=== PATIENT | female | born 1930 | race Caucasian/White ===

== ENCOUNTER 2016-06-05 12:14 | Inpatient (IN) ==
--- NOTE | 2016-06-05 13:19 | PROVIDER DOCUMENTATION ---
HPI-Musculoskeletal Pain/Inj - GENERAL Chief Complaint: Hip Injury Stated Complaint: FALL Time Seen by Provider: 06/05/16 12:36 Source: patient, family - HX OF PRESENT ILLNESS-MUSKULOSKELTAL Nature of Presenting Problem: 86 yo female presents to ER with c/o left hip pain and left knee pain after falling last night. She could not tell me what happened, what time it happened but states that she slept on the floor. She was alone. Quality of Pain: reports: aching, throbbing Severity in ED: severe Onset/Duration: last night Timing: still present Modifying Factors: improves with: movement (worsens), palpation (worsens) Any recent injury?: Yes Locality of Occurance: Home Similar Symptoms Previously?: No Recently seen or treated by another doctor?: No - FALL INJURY Location of Pain/Injury: reports: pelvis (left hip), lower extremity (left knee) Pain Radiation: reports: no radiation Reason for Fall: reports: unknown Symptoms prior to fall:: reports: none Loss of Consciousness: no loss of consciousness Injury Associated Symptoms: reports: joint pain, muscle aches Review of Systems - Adult - REVIEW OF SYSTEMS - ADULT Constitutional: reports: no symptoms reported Eyes: reports: no symptoms reported Ears, Nose, Mouth & Throat: reports: no symptoms reported Cardiovascular: reports: no symptoms reported Respiratory: reports: no symptoms reported Gastrointestinal: reports: no symptoms reported Genitourinary: reports: no symptoms reported Musculoskeletal: reports: see HPI, bone pain, joint pain, muscle aches Integumentary: reports: no symptoms reported Neurological: reports: no symptoms reported Psychiatric: reports: no symptoms reported Endocrine: reports: no symptoms reported Hematologic/Lymphatic: reports: no symptoms reported Allergic/Immunologic: reports: no symptoms reported All Other Systems: Reviewed and Negative Past History - Adult - PAST MEDICAL HISTORY-ADULT Review of Records: reports: Old Records Reviewed, Nursing Assessment Review, Medications Reviewed, Social history reviewed & non-contributory. Major Childhood Illnesses: reports: denies history Cardiovascular: reports: denies history Respiratory: reports: denies history Gastrointestinal: reports: denies history Obstetrical/Gynecological: reports: denies history Genitourinary: reports: denies history Musculoskeletal: reports: denies history Neurological: reports: denies history Endocrine/Immune: reports: Diabetes Other Conditions: reports: denies history - IMMUNIZATION STATUS Childhood Immunizations: See Nurse Assessment Flu Vaccine: See Nurse Assessment - SOCIAL HISTORY Smoking: denies, non-smoker Substance Use: none/never, denies Alcohol Use Frequency: never Living Situation: alone Physical Exam-Injury Related - Physical Exam-Injury Related Initial Vital Signs Reviewed: Yes General Appearance: appears well, alert, no apparent distress Eyes: PERRL/EOMI, pink conjunctivae Head, Ears, Nose, Mouth & Throat: moist mucous membranes Respiratory: no respiratory distress Cardiovascular: normal peripheral pulses Peripheral Pulses: dorsalis-pedis (R): 2+, dorsalis-pedis (L): 2+ Extremity: deformity (external rotation; left leg shorter than right), tenderness (left lateral hip) Integumentary: normal color, warm/dry Neurologic: grossly normal Psych/Mental Status: normal mood/affect - Glascow Coma Score Best Eye Response (Campbell): (4) open spontaneously Best Verbal Response (Stacia): (5) oriented Best Motor Response (Campbell): (6) obeys commands Stacia Total: 15 Progress - PLAN OF CARE/RESULTS Progress/Plan/Lab Results: Vital Signs - 8 hr 06/05/16 12:19 06/05/16 13:33 Temperature 99.5 F Pulse Rate 89 89 Respiratory Rate 24 23 Blood Pressure 153/056 153/56 O2 Sat by Pulse Oximetry 97 Laboratory Results - last 24 hr 06/05/16 06/05/16 06/05/16 13:27 13:27 13:27 WBC 14.85 H RBC 3.85 L Hgb 11.3 L Hct 32.9 L MCV 85.5 MCH 29.4 MCHC 34.3 RDW Std Deviation 13.8 Plt Count 126 L MPV 13.7 H Immature Gran % (Auto) 0.3 Neut % (Auto) 87.9 H Lymph % (Auto) 3.7 L [place] % (Auto) 7.9 Eos % (Auto) 0.0 Baso % (Auto) 0.2 Immature Gran # (Auto) 0.05 H Neut # (Auto) 13.04 H Lymph # (Auto) 0.55 L [place] # (Auto) 1.18 H Eos # (Auto) 0.00 Baso # (Auto) 0.03 Sodium 136 Potassium 4.3 Chloride 103 Carbon Dioxide 11 L Anion Gap 22 BUN 41 H Creatinine 3.2 H Estimated GFR/1.73 m2 14 BUN/Creatinine Ratio 13 Glucose 359 H Calculated Osmolality 297 Calcium 8.9 Total Bilirubin 0.50 AST 18 ALT 15 Alkaline Phosphatase 64 Creatine Kinase 384 H Creatine Kinase Index 1.3 CK-MB (CK-2) 4.89 Troponin T Total Protein 6.5 Albumin 3.6 Globulin 3.0 Albumin/Globulin Ratio 1.0 06/05/16 13:27 WBC RBC Hgb Hct MCV MCH MCHC RDW Std Deviation Plt Count MPV Immature Gran % (Auto) Neut % (Auto) Lymph % (Auto) [place] % (Auto) Eos % (Auto) Baso % (Auto) Immature Gran # (Auto) Neut # (Auto) Lymph # (Auto) [place] # (Auto) Eos # (Auto) Baso # (Auto) Sodium Potassium Chloride Carbon Dioxide Anion Gap BUN Creatinine Estimated GFR/1.73 m2 BUN/Creatinine Ratio Glucose Calculated Osmolality Calcium Total Bilirubin AST ALT Alkaline Phosphatase Creatine Kinase Creatine Kinase Index CK-MB (CK-2) Troponin T < 0.010 Total Protein Albumin Globulin Albumin/Globulin Ratio Orders Category Date Time Status Admit - [facility] Routine AdmDCTranf 06/05/16 14:04 Ordered Activity - Up with Assistance ORDERED Care 06/05/16 14:04 Active Lynch Cath Insertion ORDERED Care 06/05/16 12:42 Active IV Insertion ORDERED Care 06/05/16 12:39 Completed Intake and Output-Strict ORDERED Care 06/05/16 14:04 Active Vital Signs Order Q 4-HR ASSESS Care 06/05/16 14:04 Active Full Liquid Diet Diet 06/05/16 14:05 Active NPO Diet 06/05/16 14:05 Active CHEST-1 VIEW [RAD] Stat Exams 06/05/16 12:44 Completed HIP 1 VIEW LEFT [RAD] Stat Exams 06/05/16 12:48 Completed CBC WITH ELECTRONIC DIFF [HEME] Stat Lab 06/05/16 13:27 Completed CBC WITH NO DIFF [HEME] Routine Lab 06/06/16 06:00 Ordered CK PROFILE [SP CHEM] Stat Lab 06/05/16 13:27 Completed COMPREHENSIVE METABOLIC PANEL [CHEM] Routine Lab 06/06/16 06:00 Ordered COMPREHENSIVE METABOLIC PANEL [CHEM] Stat Lab 06/05/16 13:27 Completed MAGNESIUM [CHEM] Routine Lab 06/06/16 06:00 Ordered TROPONIN T Stat Lab 06/05/16 13:27 Completed TSH Routine Lab 06/06/16 06:00 Ordered UA NIMS W/REFLEX CULT [URINALYSIS] Routine Lab 06/05/16 14:[address] W/POSS RFLX CULT [URINALYSIS] Stat Lab 06/05/16 12:40 Ordered 0.9% Sodium Chloride Inj [Ns] 1,000 ml Med 06/05/16 14:08 Active IV 75 mls/hr Acetaminophen [Tylenol] Med 06/05/16 14:04 Active 650 mg PO Q6H PRN PRN Hydromorphone [Dilaudid] Med 06/05/16 14:09 Active 0.5 mg IV Q4-6H PRN PRN Ondansetron [Zofran] Med 06/05/16 14:04 Active 4 mg IV Q4H PRN PRN Pantoprazole [Protonix] Med 06/05/16 14:15 Active 40 mg IV Q24H Sodium Chloride 0.9% Med 06/05/16 14:15 Active 10 ml INJ DIRECTED Telemetry [OM.EQ] Routine Oth 06/05/16 14:04 Active EKG [EKG] Stat Ther 06/05/16 12:42 Draft Transfer/Admit Order [TRANSFER] Routine Transfer 06/05/16 14:10 Ordered 1245-Discussed patient case with Dr. Rosales; he instructed to cancel CT pelvis and order plain film at this time. 1300-Discussed x-ray results/dx/admission with patient and family; they verbalized understanding. 1350-Dr. Ojeda in ER to see patient. Result Diagrams: 06/05/16 13:27 06/05/16 13:27 - XRAY 1 XRAY: Left XRAY Study: Hip Impression: Abnormal (intertrochanteric fracture, displaced) - CONSULTS/PCP/HOSPITALIST Notification #1 *Consult/PCP/Hospitalist*: Dr. Fernandez Time Discussed: 13:15 (res habilitation assistant ortho) Reason/Comments: admit to hospitalist service Consult Disposition: Will see in ED #2 Consult: Dr. Lynch Time Discussed: 13:18 (Hospitalist Service at [place]) Consult Disposition: Admit (to [facility]) #3 Consult: Nenita CHILD SUPPORT INVESTIGATOR with DG Hospitalist Time Discussed: 13:41 Reason/Comments: Dr. Ojeda is aware and will see patient in ER prior to transfer Consult Disposition: Admit Departure - Departure Time of Disposition Decision: 13:19 DIAGNOSIS: Fall Qualifiers: Encounter type: initial encounter Qualified Code(s): W19.XXXA - Unspecified fall, initial encounter Intertrochanteric fracture of left hip Qualifiers: Encounter type: initial encounter Fracture type: closed Qualified Code(s): S72.142A - Displaced intertrochanteric fracture of left femur, initial encounter for closed fracture Disposition: ADMITTED INPATIENT 09 Certified Medical Emergency: Emergent Condition: Fair Attestation - Physician/ CORINNE Attestation Patient care was provided by Advanced Practice Provider:: Yes Advanced Practice Provider:: Jessika Borrero Advanced Practice Provider documentation review:: The Mid-level provider documentation, treatment plan and medical decision making was reviewed by the physician who agrees with all treatment and medical decision making by the MLP.
[2016-06-05 13:51] LABS: BASO% 0.2 % (0.0-0.8); HEMATOCRIT 32.9 % (37.0-47.0); HEMOGLOBIN 11.3 g/dL (12.0-16.0); IMM GRAN# 0.05 X1000 (0.0-0.04); IMM GRAN% 0.3 % (0.0-0.5); LYMPH# 0.55 X1000 (1.2-3.4); LYMPH% 3.7 % (20.5-51.1); MANUAL DIFF NEEDED? NO; MCH 29.4 PG (27-31); MCHC 34.3 g/dL (33-37); MCV 85.5 FL (81-99); MONO# 1.18 X1000 (0.11-0.59); MONO% 7.9 % (1.7-9.3); MPV 13.7 FL (7.4-10.4); NEUT% 87.9 % (42.2-75.2); PLT 126 X1000 (130-400); RBC 3.85 XMIL (4.2-5.4)
[2016-06-05] MEDS ORDERED: TYLENOL PO PRN (14:04)
[2016-06-05] MEDS ORDERED: ZOFRAN IV PRN (14:04)
[2016-06-05] MEDS ORDERED: NS 1,000 ML IV SCH (14:08)
[2016-06-05] MEDS ORDERED: DILAUDID IV PRN (14:09)
--- NOTE | 2016-06-05 14:22 | Diag Imaging Result Document ---
PROCEDURE NAME: CHEST-1 VIEW - 06/05/2016 SUPINE CHEST: FINDINGS: The lungs are well expanded. No contusions or pneumothoraces. The mediastinum is not widened. There are several old left rib fractures. No pleural effusions identified. No cardiomegaly. IMPRESSION: Negative chest.
[2016-06-05 14:23] LABS: ALBUMIN 3.6 g/dL (3.5-5.0); CALCIUM 8.9 mg/dL (8.8-10.2); POTASSIUM 4.3 mmol/L (3.5-5.1); TOTAL BILIRUBIN 0.5 mg/dL (0.20-1.00); TOTAL PROTEIN 6.5 g/dL (6.3-8.3)
--- NOTE | 2016-06-05 14:23 | Diag Imaging Result Document ---
PROCEDURE NAME: HIP 1 VIEW LEFT - 06/05/2016 LEFT HIP SINGLE VIEW: FINDINGS: There is a fracture to the left femoral neck. The femoral head remains in the acetabulum. The femoral shaft is rotated and superiorly placed. IMPRESSION: Left femoral neck fracture.
[2016-06-05 14:59] LABS: CK INDEX 1.3 (0.0-2.5); CK-MB 4.89 ng/mL (0.0-5.0)
--- NOTE | 2016-06-05 15:03 | ED EKG INTERP ---
This chart was entered by Deb Main Scribe, acting as scribe for Emilio Rosales MD. EKG Interpretation - EKG Time of EKG reading by physician:: 13:15 EKG Read and Signed by:: Emilio Rosales EKG Interpretation (*Must complete 3 of following elements*): Abnormal (rhythm - sinus rhythm w/marked sinus arrhythmia w/frequent premature ventricular complexes) Rate: 92 Comments: incomplete RBBB; septal infarct, age undetermined This chart was documented by the indicated scribe, (Deb Main Scribe) and accurately reflects the services I performed and decisions made by me, Emilio Rosales MD, as attested by the provider's signature.
--- NOTE | 2016-06-05 15:12 | EKG Report ---
Test Performed on : 06/05/2016 1:15:59 PM Test Reason : fell last night/on floor all night Blood Pressure : / mmHG Vent. Rate : 092 BPM Atrial Rate : 092 BPM P-R Int : 182 ms QRS Dur : 100 ms QT Int : 390 ms P-R-T Axes : 040 -16 072 degrees QTc Int : 482 ms Sinus rhythm. with marked sinus arrhythmia. with frequent premature ventricular complexes. Incomplete right bundle branch block Septal infarct , age undetermined Abnormal ECG When compared with ECG of 16-APR-2011 09:03, Septal infarct is now present T wave amplitude has increased in Inferior leads T wave inversion less evident in Lateral leads Unconfirmed Result
--- NOTE | 2016-06-05 15:57 | HISTORY AND PHYSICAL ---
CHIEF COMPLAINT: Left hip pain. HISTORY OF PRESENT ILLNESS: Patient is an 86-year-old female, who notes that she was in her usual state of health at home. She had gone to the restroom. When she stood up she lost her balance and fell. She denies any head injury or injury elsewhere. She noted that she was having significant pain in her hip. She therefore was brought to the emergency department. REVIEW OF SYSTEMS: Patient notes that her left hip pain gets worse with any type of movement of her left lower extremity. Although when she is lying still she is not in pain currently. She denies any fevers, chills, cough, congestion. Denies any chest pain, palpitations. Denies any dysuria, any frequency. Denies any headaches, blurred vision, change in her vision. Denies any focalized numbness, tingling, weakness. Denies any skin rashes. PAST MEDICAL HISTORY: No active medical problems. ALLERGIES: None. MEDICATIONS: None. SOCIAL HISTORY: Patient lives at home. She does not smoke or drink. FAMILY HISTORY: Noncontributory. PHYSICAL EXAMINATION: VITAL SIGNS: Reviewed. Temperature 99 degrees, pulse 89, respiratory rate 24, BP 153/56, saturations 97% on room air. GENERAL: Patient is awake, alert. She is in no respiratory distress. She is pleasant to talk with. Speech is regular. Memory is intact. NECK: Supple. CV: Regular rate. CHEST: Relatively clear. No wheezing. Nonlabored. ABDOMEN: Soft. No masses. No hepatosplenomegaly. Positive bowel sounds. EXTREMITIES: She moves all extremities well with the exception of the left lower extremity which is shortened and externally rotated. But she does have good dorsalis pedal pulses bilaterally. NEUROLOGIC: No focal changes. DIAGNOSTIC DATA: CBC normal. CMP currently pending. ASSESSMENT: 1. Left intertrochanteric hip fracture. 2. Leukocytosis. WBC count is 14. Patient has no previous history or symptoms of any infectious etiology. This is likely reactionary to her current fall. We will continue to follow. 3. Mild thrombocytopenia. Have no previous history of labs. We will continue to follow. PLAN: We will admit patient to the hospital. Will consult Orthopedics. She likely will have surgery in the a.m. to repair her hip. We will continue pain control, place her on IV fluids. We will allow her to drink tonight then keep her n.p.o. after midnight. Further orders as needed. cc: Khanh Ojeda MD
[2016-06-05] MEDS: PROTONIX IV SCH (16:19)
[2016-06-05] MEDS: SODIUM CHLORIDE 0.9% INJ SCH (16:19)
[2016-06-05] MEDS ORDERED: HALDOL IV PRN (16:41)
[2016-06-05] MEDS ORDERED: MORPHINE IV PRN ×2 (16:41)
[2016-06-05] MEDS ORDERED: OXY IR PO PRN (16:41)
[2016-06-05 16:55] LABS: BILIRUBIN URINE NEGATIVE (NEGATIVE); BLOOD URINE 4+ (NEGATIVE); CLARITY VERY CLOUDY (CLEAR); COLOR YELLOW; LEUKOCYTES URINE TRACE (NEGATIVE); NITRITE URINE NEGATIVE (NEGATIVE); PROTEIN URINE 1+(30 mg/dL) mg/dL (NEGATIVE); UROBILINOGEN URINE NORMAL
[2016-06-05 17:03] LABS: MANUAL DIFF NEEDED? NO
[2016-06-05 17:03] LABS: URINE CAST NONE SEEN /LPF; URINE CRYSTAL NONE SEEN /HPF; URINE CULTURE PL NEEDED? YES; URINE EPITHELIAL CELLS <10 /HPF (<10); URINE RBC 20-40 /HPF (<10); URINE SOURCE CATH; URINE WBC <10 /HPF (<10)
[2016-06-05 17:06] LABS: BASO% 0.2 % (0.0-0.8); EOS# 0.01 X1000 (0.0-0.7); EOS% 0.1 % (0.0-10.0); HEMATOCRIT 34.8 % (37.0-47.0); HEMOGLOBIN 12.3 g/dL (12.0-16.0); IMM GRAN# 0.05 X1000 (0.0-0.04); IMM GRAN% 0.4 % (0.0-0.5); LYMPH% 7.1 % (20.5-51.1); MCH 30.1 PG (27-31); MCHC 35.3 g/dL (33-37); MCV 85.1 FL (81-99); MONO# 1.23 X1000 (0.11-0.59); MONO% 9.7 % (1.7-9.3); MPV 13.2 FL (7.4-10.4); NEUT% 82.5 % (42.2-75.2); PLT 134 X1000 (130-400); RBC 4.09 XMIL (4.2-5.4)
[2016-06-05 17:15] LABS: INR 1.05; PROTIME 11.1 Seconds (9.2-11.7)
[2016-06-05] MEDS: LR 1,000 ML IV SCH (17:16)
[2016-06-05] MEDS: TYLENOL PO SCH (17:17)
[2016-06-05 17:27] LABS: CALCIUM 9.4 mg/dL (8.8-10.2); POTASSIUM 3.8 mmol/L (3.5-5.1)
[2016-06-05] MEDS ORDERED: KEFZOL 1 GM/D5W 1 GM/50 ML IVPB IV ONE (17:37)
[2016-06-05] MEDS: LOPRESSOR PO SCH (21:02)
[2016-06-06] MEDS: TYLENOL PO SCH ×3 (03:15→20:03)
[2016-06-06 05:55] LABS: HEMATOCRIT 31.9 % (37.0-47.0); HEMOGLOBIN 10.8 g/dL (12.0-16.0); MCH 29.8 PG (27-31); MCHC 33.9 g/dL (33-37); MCV 87.9 FL (81-99); MPV 13.6 FL (7.4-10.4); RBC 3.63 XMIL (4.2-5.4)
[2016-06-06 06:23] LABS: ALBUMIN 3.2 g/dL (3.5-5.0); CALCIUM 8.5 mg/dL (8.8-10.2); POTASSIUM 4.8 mmol/L (3.5-5.1); TOTAL BILIRUBIN 0.33 mg/dL (0.20-1.00); TOTAL PROTEIN 6.6 g/dL (6.3-8.3)
[2016-06-06] MEDS: LR 1,000 ML IV SCH ×2 (06:28→20:03)
[2016-06-06] MEDS ORDERED: KEFZOL 1 GM/D5W 1 GM/50 ML IVPB ONE (07:55)
[2016-06-06] MEDS ORDERED: NEOSPORIN G.U. IRRIGANT ONE (07:55)
[2016-06-06] MEDS ORDERED: CLAVE SECONDARY SET 11953 ONE (07:58)
[2016-06-06] MEDS ORDERED: MARCAINE 0.25% PF/EPI 1:200,000 ONE (09:35)
[2016-06-06] MEDS ORDERED: DIPRIVAN 1% ONE (09:58)
[2016-06-06] MEDS ORDERED: FENTANYL ONE ×2 (09:58→11:27)
[2016-06-06] MEDS ORDERED: MORPHINE IV PRN (11:10)
[2016-06-06] MEDS ORDERED: OXY IR PO PRN (11:10)
[2016-06-06] MEDS ORDERED: ZOFRAN IV PRN (11:10)
[2016-06-06] MEDS ORDERED: MILK OF MAGNESIA PO PRN (11:10)
[2016-06-06] MEDS ORDERED: HALDOL IV PRN (11:10)
[2016-06-06] MEDS: LOPRESSOR PO SCH (12:57)
[2016-06-06] MEDS: PROTONIX IV SCH ×2 (12:57→16:18)
[2016-06-06] MEDS: SODIUM CHLORIDE 0.9% INJ SCH (12:57)
[2016-06-06] MEDS: ROCEPHIN 1 GM/NS 1 GM/50 ML IVPB IV SCH (12:58)
--- NOTE | 2016-06-06 14:18 | PROGRESS NOTE ---
DATE: 06/06/2016 SUBJECTIVE: Patient without any new complaints. OBJECTIVE: Vital signs: Temperature 97 degrees, pulse 71, respiratory 16, blood pressure 109/77. General: She is awake. HEENT: Normocephalic. Neck: Supple. CARDIOVASCULAR: Regular rate. Chest: Relatively clear. Abdomen: Soft. LABORATORY: Stable complete blood count, complete metabolic panel with a glucose of 280, potassium 3.3. ASSESSMENT: 1. Renal failure stage 3. Uncertain etiology. This certainly appears to be chronic, although I have no previous labs on record. We will need to contact her primary care to see if it this is chronic. 2. Left intertrochanteric hip fracture status post repair. 3. Leukocytosis, resolved. 4. Mild thrombocytopenia with platelet count of 101,000, stable. 5. Questionable urinary tract infection. We will continue Rocephin until culture is negative. cc: Khanh Ojeda MD
--- NOTE | 2016-06-06 15:20 | OPERATIVE NOTE ---
PROCEDURE DATE: PREOPERATIVE DIAGNOSIS: Left hip femoral neck fracture. POSTOPERATIVE DIAGNOSIS: Left hip femoral neck fracture. PROCEDURE: Left evy-hip arthroplasty. SURGEON: Dr. Pablo Fernandez, Anesthesia. IV FLUIDS: Lactated Ringer's. ESTIMATED BLOOD LOSS: 200 mL. COMPLICATIONS: None. DRAINS: None. ANTIBIOTICS: Ancef IV preop. BRIEF HISTORY: Patient with a fall from a standing height sustaining a left femoral neck fracture. The patient was counseled about risks, benefits, and options and indications of left hip fracture. After a thorough discussion of the risks, benefits, and options and indications, including that of fracture, dislocation, continued pain, leg length disturbance, the patient understands there are other orthopedic, other medical anesthesia risks associated with surgery and wished to proceed with a left evy-hip arthroplasty. ORTHOPEDIC IMPLANTS: DePuy Tri-Lock stem with +8.5 neck length, standard offset and a 46 mm shale. OPERATION IN DETAIL: The patient was taken to the operating room, where a time-out with side verification procedure was performed. The left hip was identified as the site of surgery, prepped and draped in sterile usual fashion. Using the direct anterior approach on the Bethany table, sharp dissection was performed through the skin down to the level of the tensor fascia. Tensor fascia was split in line with fibers, bluntly dissected off the anterior portion of the tensor. The anterior interval was exposed. Circumflex vessels were identified and bovied extensively. Next, a capsule was identified. T capsulotomy was performed. The fracture hematoma was encounter. Once this was evacuated, a corkscrew was placed in the femoral head. The femoral head was removed to the back table for sizing. The trial was then used to trial the acetabulum. Once the size had been determined, attention was then turned to the neck. A cleanup cut was made on the neck and using the Bethany table, the femur was position for preparation. Box osteotome was used, the canal finder, then a lateralizing rasp and a starter broach. It was broached up to a size 3. The size 3 gave excellent stability and was very stable. Trial was performed off the size 3 1st with a standard, then a +5. then a +8.5. A + 8.5 was felt to reduced stability, reproduce leg length. This was confirmed on the x-rays. The final construct was then pulled. The stem was then impacted in a press-fit fashion into a clean acetabulum. The stem was then impacted into a cut femoral canal after irrigation had been performed. This had excellent stability and seated at the same place as the trial. The final bipolar head was assembled on the back table. This was placed on a clean dry trunnion. It was impacted and engaged. The hip reduced a final time. The hip was very stable. Final x-rays were obtained in multiple views. Thorough irrigation of all the incision was performed. The capsule structure was closed with #1 FiberWire suture and then oversewn with an 0 Vicryl. The next layer was irrigated. The tensor was closed with 0 Vicryl. The skin was closed with 2-0 Vicryl and the final skin closure with jagjit. Local anesthetic with Marcaine 0.25% with epinephrine was injected eddie-incisional. Sterile dressings applied, and an abdominal binder was placed for pressure over the wound and the patient was taken to recovery in stable condition. Sponge and needle count correct x2. The patient tolerated the procedure well with no complications. Dictated by Colton Fernandez DO for Guy Fernandez MD cc: DO Guy Jade MD
[2016-06-06] MEDS: KEFZOL 1 GM/D5W 1 GM/50 ML IVPB IV SCH (16:19)
[2016-06-06] MEDS: PERIDEX MT SCH (20:03)
[2016-06-06] MEDS: COLACE PO SCH (20:03)
[2016-06-07] MEDS: LOPRESSOR PO SCH ×2 (00:24→09:08)
[2016-06-07] MEDS: KEFZOL 1 GM/D5W 1 GM/50 ML IVPB IV SCH ×2 (00:38→09:08)
[2016-06-07] MEDS: LR 1,000 ML IV SCH ×2 (05:11→21:09)
[2016-06-07] MEDS: TYLENOL PO SCH ×3 (05:11→21:09)
[2016-06-07 05:35] LABS: MANUAL DIFF NEEDED? NO
[2016-06-07 05:49] LABS: BASO% 0.1 % (0.0-0.8); EOS# 0.01 X1000 (0.0-0.7); EOS% 0.1 % (0.0-10.0); HEMATOCRIT 27.4 % (37.0-47.0); HEMOGLOBIN 9.4 g/dL (12.0-16.0); IMM GRAN# 0.03 X1000 (0.0-0.04); IMM GRAN% 0.3 % (0.0-0.5); LYMPH# 0.91 X1000 (1.2-3.4); LYMPH% 7.9 % (20.5-51.1); MCH 29.6 PG (27-31); MCHC 34.3 g/dL (33-37); MCV 86.2 FL (81-99); MONO# 1.21 X1000 (0.11-0.59); MONO% 10.5 % (1.7-9.3); MPV 13.9 FL (7.4-10.4); NEUT% 81.1 % (42.2-75.2); PLT 101 X1000 (130-400); RBC 3.18 XMIL (4.2-5.4)
[2016-06-07 05:56] LABS: CALCIUM 8.2 mg/dL (8.8-10.2); POTASSIUM 4.4 mmol/L (3.5-5.1)
[2016-06-07] MEDS ORDERED: LOVENOX SUBQ SCH (06:00)
[2016-06-07] MEDS ORDERED: CHLORASEPTIC SPRAY MT PRN (08:05)
[2016-06-07] MEDS: FERROUS SULFATE PO SCH (09:08)
[2016-06-07] MEDS: ROCEPHIN 1 GM/NS 1 GM/50 ML IVPB IV SCH (09:10)
[2016-06-07] MEDS: PERIDEX MT SCH ×2 (09:10→21:09)
[2016-06-07] MEDS ORDERED: XYLOCAINE-MPF 2% ONE (10:18)
[2016-06-07] MEDS ORDERED: DECADRON ONE (10:18)
[2016-06-07] MEDS ORDERED: ZOFRAN ONE (10:18)
[2016-06-07] MEDS ORDERED: QUELICIN (DOSE) ONE (10:18)
[2016-06-07] MEDS ORDERED: EXTENSION SET 32 IN 4522 ONE (10:18)
[2016-06-07] MEDS ORDERED: ANESTHESIA PB SET 88 IN 5742 ONE (10:18)
[2016-06-07] MEDS ORDERED: LR 2,000 ML ONE (10:18)
[2016-06-07] MEDS ORDERED: OFIRMEV 1000 MG/ISOTONIC SOLN 1,000 MG/100 ML BOTTLE ONE (10:18)
[2016-06-07 15:52] LABS: ALBUMIN 2.9 g/dL (3.5-5.0); CALCIUM 8.2 mg/dL (8.8-10.2); POTASSIUM 4.3 mmol/L (3.5-5.1)
--- NOTE | 2016-06-07 15:55 | PROGRESS NOTE ---
DATE: 06/07/2016 SUBJECTIVE: Ms. Basilio is an 86-year-old female who is postoperative day 1 from a left evy hip arthroplasty. She was difficult to answer questions and family noted that she has had some increased confusion. OBJECTIVE: General: She is a well-developed, well-nourished, female. She is alert but unable to answer questions appropriately. Vital Signs: Stable. She is afebrile. Her hematocrit is 27.4% and her hemoglobin is 9.4. Musculoskeletal: Her incisions are clean, dry, and intact without sign of infection. Her calf is soft. Her leg is neurovascularly intact without sign of deep venous thrombosis. ASSESSMENT: Postoperative day 1 from a left evy hip arthroplasty. PLAN: We plan to work with her with physical therapy and we will speak with the hospitalist concerning her recent confusion. She can be discharged to rehab when she is medically stable. Dictated by KARTHIKEYAN Mariscal for Mikael Bains MD cc: KARTHIKEYAN Mariscal MD
[2016-06-07 16:16] LABS: URINE SOURCE CATH
[2016-06-07 16:22] LABS: BILIRUBIN URINE NEGATIVE (NEGATIVE); BLOOD URINE MODERATE (NEGATIVE); COLOR ORANGE; GLUCOSE URINE 500 mg/dL (NEGATIVE); LEUKOCYTES URINE LARGE (NEGATIVE); NITRITE URINE NEGATIVE (NEGATIVE); PROTEIN URINE 200 mg/dL (NEGATIVE); SP GRAVITY URINE 1.024; TURBIDITY URINE TURBID (CLEAR); UROBILINOGEN URINE NORMAL (NORMAL)
[2016-06-07 16:26] LABS: URINE MICRO REVIEW NEEDED? YES
--- NOTE | 2016-06-07 16:27 | PROGRESS NOTE ---
DATE: 06/07/2016 SUBJECTIVE: The patient is resting comfortably in bed. She has not been eating very much. She states that she is not hungry and does not have an appetite. OBJECTIVE: Vital Signs: Temperature 97.8 degrees, blood pressure 95/37, heart rate 57, respirations 18, and O2 saturations are 95% on 2 liters nasal cannula. Input 3 liters and output 925 mL. General: This is a chronically ill-appearing elderly female, lying in bed, in no acute distress. HEENT: Head is normocephalic and atraumatic. Heart: S1 and S2. Normal. Regular rate and rhythm. Lungs: Clear to auscultation bilaterally. No wheezes, no rales. No rhonchi. Abdomen: Positive bowel sounds. Soft, nontender, nondistended. Extremities: No edema. No cyanosis. No calf tenderness. Neurologic: The patient is awake and alert. She is able to move all 4 extremities. LABORATORY DATA: White blood cell count 11, hemoglobin 9.4, hematocrit 27, platelets 101,000. Sodium 137, potassium 4.4, chloride 104, CO2 of 18, BUN 44, creatinine 2.8, glucose 240. ASSESSMENT AND PLAN: 1. Status post left evy hip arthroplasty. Management as per the orthopedic surgeon. 2. Acute kidney injury on chronic kidney disease stage 4. This appears to be improving slowly. We will continue on IV fluid hydration. We will also check urine studies and a renal ultrasound. We will avoid nephrotoxic agents. 3. Urinary tract infection. The patient is currently on Rocephin. However, her urine culture came back with no growth. We will repeat a urinalysis and urine culture. 4. Thrombocytopenia. The patient is on Lovenox. We will order a heparin-induced thrombocytopenia assay. 5. Hypotension. We will hold the patient's metoprolol at this time. Continue on IV fluid hydration. 6. Anemia. This is most likely hemodilutional and maybe some blood loss during surgery. We will continue to monitor the patient's hemoglobin and hematocrit closely. She is on iron supplementation. 7. Uncontrolled diabetes mellitus type 2. We will start the patient on Levemir. The patient is normally on Glucophage, Amaryl, and Januvia as outpatient; however, her renal function is quite poor right now. We will hold the oral medications at this time. 8. Protein-calorie malnutrition. We will start the patient on Glucerna with each meal. 9. The plan of care was discussed with the patient and her son at the bedside. cc: Jessica Otto MD
[2016-06-07 16:30] LABS: UR EPITHELIAL CELLS >10 /HPF (<10); URINE BACTERIA NEGATIVE /HPF; URINE RBC <10 /HPF (<10); URINE WBC TNTC /HPF (<10)
[2016-06-07 16:35] LABS: UR CREAT RANDOM 110.1 mg/dL (11-20); UR PROT RANDOM 156.5 mg/dL
[2016-06-07 16:41] LABS: URINE CASTS GRANULAR PRESENT
--- NOTE | 2016-06-07 17:06 | Diag Imaging Result Document ---
PROCEDURE NAME: HEAD W/O CONTRAST - 06/07/[address]: A CT dose reduction protocol was used. COMPARISON: None. FINDINGS: There is moderate diffuse cerebral atrophy. No intracranial mass or hemorrhage. Angel and white matter differentiation is preserved. The skull is intact. The sinuses, mastoids, and middle ears are clear. IMPRESSION: Cerebral atrophy. No acute disease. [facility]
[2016-06-07] MEDS ORDERED: INSULIN PEN NEEDLES ONE (17:12)
[2016-06-07] MEDS: MEGACE LIQUID PO SCH (17:46)
[2016-06-07] MEDS: PROTONIX IV SCH (17:52)
[2016-06-07] MEDS: LEVEMIR SUBQ SCH (21:08)
[2016-06-07] MEDS: SODIUM BICARBONATE PO SCH (21:08)
[2016-06-07] MEDS: COLACE PO SCH (21:09)
[2016-06-08] MEDS: LR 1,000 ML IV SCH (00:57)
[2016-06-08] MEDS: TYLENOL PO SCH ×3 (04:50→21:59)
[2016-06-08 05:31] LABS: MANUAL DIFF NEEDED? NO
[2016-06-08 05:38] LABS: BASO% 0.2 % (0.0-0.8); HEMATOCRIT 29.3 % (37.0-47.0); IMM GRAN# 0.09 X1000 (0.0-0.04); IMM GRAN% 0.9 % (0.0-0.5); LYMPH# 1.11 X1000 (1.2-3.4); LYMPH% 10.7 % (20.5-51.1); MCH 29.2 PG (27-31); MCHC 34.1 g/dL (33-37); MCV 85.7 FL (81-99); MONO# 1.21 X1000 (0.11-0.59); MONO% 11.7 % (1.7-9.3); MPV 13.8 FL (7.4-10.4); NEUT% 75.5 % (42.2-75.2); PLT 123 X1000 (130-400); RBC 3.42 XMIL (4.2-5.4)
[2016-06-08 05:59] LABS: CALCIUM 8.6 mg/dL (8.8-10.2); POTASSIUM 4.9 mmol/L (3.5-5.1)
--- NOTE | 2016-06-08 08:11 | Diag Imaging Result Document ---
PROCEDURE NAME: CHEST-PORTABLE - 06/08/2016 PORTABLE CHEST X-RAY: COMPARISON: 06/05/2016. FINDINGS: The lungs are normally expanded and clear. Heart size and mediastinal contours are normal. No pneumothorax or pleural effusion. IMPRESSION: Negative exam.
[2016-06-08] MEDS ORDERED: LOVENOX SUBQ SCH (09:00)
--- NOTE | 2016-06-08 10:47 | PROGRESS NOTE ---
DATE: 06/08/2016 SUBJECTIVE: Ms. Basilio is an 86-year-old female, who is postoperative day 2 from a left evy hip arthroplasty. She was difficult in seclusion due to some confusion. The family states she has no new complaints, other than the confusion. OBJECTIVE: General: She is a well-developed, well-nourished female. She is alert, but unable to answer questions appropriately. Vital Signs: Stable. She is afebrile. Her hematocrit is. 29.3% her hemoglobin is 10. She has not walked with physical therapy, but she did stand at bedside and marked on her ballot. Musculoskeletal: Her incisions are clean, dry, and intact without signs of infection. Her calf is soft. Her leg is neurovascularly intact without sign of deep venous thrombosis. ASSESSMENT: Postoperative day 2 from a left evy hip arthroplasty. PLAN: We will continue working with physical therapy, and she can be discharged to rehab when she is medically stable. Dictated by KARTHIKEYAN Mariscal for Mikael Bains MD cc: KARTHIKEYAN Mariscal MD
[2016-06-08] MEDS: MEGACE LIQUID PO SCH (10:53)
[2016-06-08] MEDS: PERIDEX MT SCH ×2 (10:54→22:00)
[2016-06-08] MEDS: FERROUS SULFATE PO SCH (10:54)
[2016-06-08] MEDS: SODIUM BICARBONATE PO SCH ×2 (10:54→21:59)
[2016-06-08] MEDS: LEVEMIR SUBQ SCH ×2 (10:55→22:01)
[2016-06-08 16:02] LABS: URINE CULTURE NEEDED? NO; URINE SOURCE CATH
--- NOTE | 2016-06-08 16:02 | PROGRESS NOTE ---
DATE: 06/08/2016 SUBJECTIVE: The patient is resting comfortably in bed. No acute events noted overnight. The patient is still not eating very well as per her son. OBJECTIVE: Vital Signs: Temperature 98 degrees, blood pressure 124/36, heart rate 66, respirations 20, O2 saturations 95% on 2 L nasal cannula. General: This is an elderly female, lying in bed in no acute distress. Head: Normocephalic, atraumatic. Heart: S1, S2. Normal. Regular rate and rhythm. Lungs: Clear to auscultation bilaterally. No wheezes , no rales. No rhonchi. Abdomen: Positive bowel sounds. Soft, nontender, nondistended. Extremities: No edema. No cyanosis. No calf tenderness. Neurologic: The patient is awake and alert. LABS: White blood cell count 10, hemoglobin 10, hematocrit 29, platelets 123. Sodium 139, potassium 4.9, chloride 105, CO2 16, BUN 48, creatinine 2.6, glucose 224, albumin 3. ASSESSMENT AND PLAN: 1. Status post left evy hip arthroplasty. Stable. 2. Acute kidney injury on chronic kidney disease stage IV. The patient's creatinine continues to improve. The patient has not urinated since her Lynch was removed yesterday. We will replace the Lynch catheter and monitor the patient's urine output closely. 3. Urinary tract infection. Continue on Rocephin. The second urine culture so far is showing no growth. 4. Thrombocytopenia. Improved. 5. Anemia. Stable. 6. Diabetes mellitus type 2. Continue on Levemir. 7. Protein calorie malnutrition. Continue with Glucerna with each meal plus Megace. 8. Deep vein thrombosis prophylaxis. SCDs. cc: Jessica Otto MD [facility]
[2016-06-08 16:10] LABS: BILIRUBIN URINE NEGATIVE (NEGATIVE); BLOOD URINE MODERATE (NEGATIVE); COLOR YELLOW; GLUCOSE URINE 300 mg/dL (NEGATIVE); LEUKOCYTES URINE NEGATIVE (NEGATIVE); NITRITE URINE NEGATIVE (NEGATIVE); PH URINE 5.5; PROTEIN URINE 100 mg/dL (NEGATIVE); SP GRAVITY URINE 1.023; TURBIDITY URINE HAZY (CLEAR); UROBILINOGEN URINE NORMAL (NORMAL)
[2016-06-08 16:12] LABS: UR EPITHELIAL CELLS >10 /HPF (<10); URINE BACTERIA NEGATIVE /HPF; URINE MICRO REVIEW NEEDED? YES; URINE RBC <10 /HPF (<10); URINE WBC <10 /HPF (<10)
[2016-06-08 16:22] LABS: URINE CASTS GRANULAR PRESENT
[2016-06-08] MEDS: SODIUM CHLORIDE 0.9% INJ SCH (21:58)
[2016-06-08] MEDS: PROTONIX IV SCH (21:58)
[2016-06-08] MEDS: KEFLEX PO SCH (21:59)
[2016-06-08] MEDS: COLACE PO SCH (21:59)
[2016-06-09 06:08] LABS: MANUAL DIFF NEEDED? NO
[2016-06-09 06:22] LABS: BASO% 0.2 % (0.0-0.8); EOS# 0.26 X1000 (0.0-0.7); EOS% 2.8 % (0.0-10.0); HEMATOCRIT 27.7 % (37.0-47.0); HEMOGLOBIN 9.3 g/dL (12.0-16.0); IMM GRAN# 0.11 X1000 (0.0-0.04); IMM GRAN% 1.2 % (0.0-0.5); LYMPH% 16.3 % (20.5-51.1); MCH 29.3 PG (27-31); MCHC 33.6 g/dL (33-37); MCV 87.4 FL (81-99); MONO# 1.15 X1000 (0.11-0.59); MONO% 12.5 % (1.7-9.3); MPV 13.9 FL (7.4-10.4); PLT 117 X1000 (130-400); RBC 3.17 XMIL (4.2-5.4)
[2016-06-09 07:08] LABS: CALCIUM 8.2 mg/dL (8.8-10.2); POTASSIUM 3.9 mmol/L (3.5-5.1)
[2016-06-09] MEDS: TYLENOL PO SCH ×3 (07:50→21:53)
[2016-06-09] MEDS: LEVEMIR SUBQ SCH ×3 (09:07→21:54)
[2016-06-09] MEDS: MEGACE LIQUID PO SCH (09:11)
[2016-06-09] MEDS: FERROUS SULFATE PO SCH (09:12)
[2016-06-09] MEDS: PERIDEX MT SCH ×2 (09:12→21:53)
[2016-06-09] MEDS: FLOMAX PO SCH (09:12)
[2016-06-09] MEDS: KEFLEX PO SCH ×2 (09:12→21:53)
[2016-06-09] MEDS: SODIUM BICARBONATE PO SCH ×2 (09:12→21:54)
--- NOTE | 2016-06-09 13:04 | PROGRESS NOTE ---
DATE: 06/09/2016 SUBJECTIVE: The patient states that she is not hungry and she cannot because her throat hurts and she feels like whenever she eats, the food gets stuck in her throat. OBJECTIVE: Vital Signs: Temperature 98.2 degrees, blood pressure 137/59, heart rate 74, respirations 18, O2 saturation is 100% on 3 L nasal cannula. General: This is a chronically ill- appearing, elderly female, lying in bed, in no acute distress. Head: Normocephalic, atraumatic. Heart: S1, S2. Normal. Regular rate and rhythm. Lungs: Clear to auscultation bilaterally. No wheezes. No rales. No rhonchi. Abdomen: Positive bowel sounds. Soft, nontender, nondistended. Extremities: No edema. No cyanosis. Neurologic: The patient is alert and oriented x3. LABS: White blood cell count 9.2, hemoglobin 9.3, hematocrit 27, platelets 117, 000. Sodium 142, potassium 3.9, chloride 110, CO2 18, BUN 41, creatinine 2.3, glucose 91. ASSESSMENT AND PLAN: 1. Dysphagia with odynophagia. Will order a modified barium swallow. We will also consult GI for further recommendations. Continue on IV Protonix. 2. Status post left evy hip arthroplasty. Stable. 3. Acute kidney injury on chronic kidney disease stage 4. Improved. The patient was noted to be retaining urine so we will leave the Lynch catheter in place. Flomax was started yesterday. 4. Urinary tract infection. Continue on Keflex. 5. Thrombocytopenia. Stable. 6. Anemia. Stable. 7. Diabetes mellitus type 2. Continue on Levemir. 8. Protein calorie malnutrition. Continue with Megace and Glucerna. 9. Deep vein thrombosis prophylaxis. Continue with SCDs. cc: Jessica Otto MD [facility]
--- NOTE | 2016-06-09 14:00 | Diag Imaging Result Document ---
PROCEDURE NAME: US RENAL 2 (RETROPER) COMPLETE - 06/09/2016 RENAL ULTRASOUND: FINDINGS: The right kidney measures 10.2 x 4.3 x 4.5 cm. Mild increased renal echogenicity. There is a 1 cm cyst in the mid kidney. No stone or hydronephrosis. Incidental note is made of a distended gallbladder. No stones or wall thickening. The left kidney measures 9.5 x 4.4 x 4.7 cm. Borderline mild increased renal echogenicity with cortical thinning. No stone or hydronephrosis. The urinary bladder is not distended. IMPRESSION: 1. Mild increased renal echogenicity which may indicate medical renal disease. 2. Distended gallbladder.
--- NOTE | 2016-06-09 15:24 | Diag Imaging Result Document ---
PROCEDURE NAME: BA SWALLOW W/VIDEO SPEECH THER - 06/09/2016 BARIUM SWALLOW: FLUOROSCOPY TIME: 30 seconds. The radiation dose is 18 mGy. FINDINGS: The patient was given liquid barium to ingest by speech pathologist, and the swallowing mechanism was observed fluoroscopically in the lateral projection. The patient is able to swallow liquid barium without substantial difficulty. There was no laryngeal penetration or aspiration observed. There is some pooling of barium in the valleculae following swallowing. There is some extrinsic impression upon the posterior margin of the cervical esophagus by anterior cervical spine osteophytes noted. Limited evaluation of the thoracic esophagus showed mild tertiary contractions, but relatively rapid passage of most of the swallowed barium from the esophagus into the stomach.
[2016-06-09] MEDS: PROTONIX IV SCH (16:23)
[2016-06-09] MEDS: DIFLUCAN PO SCH (16:23)
[2016-06-09] MEDS: SODIUM CHLORIDE 0.9% INJ SCH (16:24)
[2016-06-09] MEDS ORDERED: MYCOSTATIN SUSP PO SCH (17:00)
[2016-06-09] MEDS: COLACE PO SCH (21:53)
--- NOTE | 2016-06-10 04:58 | CONSULTATION ---
DATE OF CONSULTATION: 06/09/2016 REASON FOR REFERRAL: Dysphagia. HISTORY OF PRESENT ILLNESS: This is an 86-year-old, white female who was admitted to the hospital after a fracture of the left hip. She had surgery on 06/06/2016 of a left hip arthroplasty. Since admission, she has not been eating well. She reports a sore throat and feeling like food gets stuck in her throat. She had a recent modified barium swallow today. Findings showed she was able to swallow without difficulty. There was no aspiration noted. There was some pooling of barium in the valleculae following swallowing. There was extrinsic impression upon the posterior margin of the cervical esophagus by anterior cervical osteophytes. There was limited evaluation of the thoracic esophagus that showed mild tertiary contractions but relative rapid passage of most of the barium from the esophagus into the stomach. There was no family at the bedside. PAST MEDICAL HISTORY: Recent hip fracture and repair, renal failure. PAST SURGICAL HISTORY: As noted, recent left hip surgery/arthroplasty on 2016 due to left intertrochanteric hip fracture. SOCIAL HISTORY: She lives at home. Denies tobacco or alcohol use. ALLERGIES: No known drug allergies. HOME MEDICATIONS: Aspirin 81 mg daily, metformin 500 mg twice a day, losartan 50 mg daily, rosuvastatin 20 mg daily, glimepiride 4 mg twice a day, Januvia 100 mg daily, ezetimibe 1 tablet daily. REVIEW OF SYSTEMS: Per HPI. PHYSICAL EXAMINATION: Vital Signs: Temperature 98.2 degrees, pulse 74, respirations 18, blood pressure 137/59. Generally: Patient is awake, in no acute distress. HEENT: Oral mucosa is very dry. Very little, small amount of white specks noted on her tongue and cheeks, possible andrea. Respiratory: Lung sounds essentially clear bilaterally. Cardiovascular: Regular rate and rhythm. Abdomen: Positive bowel sounds. Soft, nontender. Extremities: She has had recent hip fracture surgery on the left side with the dressing intact. LABORATORY RESULTS: Hematology: White count 9.23, hemoglobin 9.3, hematocrit 27.7, MCV 87.4, platelets 117,000. Coagulation: Prothrombin time 11.1, INR 1.05. Chemistry: Sodium 142, potassium 3.9, chloride 110, CO2 18, BUN 49, creatinine 2.3. ASSESSMENT AND PLAN: 1. Recent hip fracture/surgery. 2. Acute kidney injury on chronic kidney disease, following by the hospitalist. 3. Urinary tract infection, currently being treated with antibiotics. 4. Anemia, stable. 5. Dysphagia, odynophagia. She has had a modified barium swallow. Nurse states that report was given that could possibly be andrea. We will start on Diflucan. Depending on progress, she may need an esophagogastroduodenoscopy if symptoms do not improve. We will continue to follow and further plans will be made as needed. I have discussed this case with Dr. Rodriguez. Thank you for this consultation. Dictated by CATARINA Nieto for Aakash Rodriguez MD cc: CATARINA Whitman MD [facility]
[2016-06-10 06:35] LABS: CALCIUM 8.2 mg/dL (8.8-10.2); POTASSIUM 3.7 mmol/L (3.5-5.1)
[2016-06-10] MEDS: TYLENOL PO SCH ×2 (08:07→12:15)
[2016-06-10] MEDS: LEVEMIR SUBQ SCH (09:36)
[2016-06-10] MEDS: MEGACE LIQUID PO SCH (09:37)
[2016-06-10] MEDS: DIFLUCAN PO SCH (09:38)
[2016-06-10] MEDS: SODIUM BICARBONATE PO SCH (09:38)
[2016-06-10] MEDS: KEFLEX PO SCH (09:38)
[2016-06-10] MEDS: FLOMAX PO SCH (09:38)
[2016-06-10] MEDS: PERIDEX MT SCH (09:39)
[2016-06-10] MEDS: FERROUS SULFATE PO SCH (09:39)
[2016-06-10 10:52] VITALS: BP 139/57
--- NOTE | 2016-06-10 11:54 | DISCHARGE SUMMARY ---
ADMISSION DATE: 06/05/2016 DISCHARGE DATE: 06/10/2016 CONSULTATIONS: Dr. Rodriguez with Gastroenterology. PERTINENT PROCEDURES: 1. Chest x-ray showed left femoral neck fracture. 2. Left evy hip arthroplasty performed by Dr. Yu. 3. Head CT shows cerebral atrophy. No acute disease. 4. Modified barium swallow showed limited evaluation of the thoracic esophagus, showed mild tertiary contractions but relatively rapid passage of most of the flow of barium from the esophagus into the stomach. 5. Renal ultrasound showed mild increased renal echogenicity which may indicate medical renal disease, distended gallbladder. DISCHARGE DIAGNOSES: 1. Dysphagia with odynophagia. 2. Oral andrea. 3. Status post left hemiarthroplasty 4. Acute kidney injury on chronic kidney disease stage 4. 5. UTI. 6. Thrombocytopenia 7. Anemia 8. Diabetes mellitus type 2. 9. Protein calorie malnutrition. HOSPITAL COURSE: Briefly, Ms. Basilio is an 86-year-old female who had gone to go the restroom. When she stood she lost her balance and fell. There was no head injury reported but she did note that she was having significant pain in her right hip. She was brought to the emergency room where she was found to have a left femoral neck fracture. They did a head CT. It did not show anything acute. She did undergo a left evy hip arthroplasty performed by Dr. Yu. She was found to have a questionable UTI and started on IV antibiotics. She was also found to have uncontrolled diabetes mellitus. She was started on Levemir. Patient was working with physical therapy. There was some concern for some recent confusion. Patient did undergo another head CT that did not show anything acute. Patient's confusion resolved. Patient did have an acute kidney injury on chronic kidney disease. She was continued on IV fluids. She did have some improvement. They did take her Lynch out on 06/08 however the patient did not urinate. The Lynch catheter was replaced. Her urine output was monitored closely. She was started on Flomax. She will be discharged to rehab with the Lynch. Patient was also not eating well. She will be getting Megace as well as Glucerna with her meals. Patient has been medically cleared per orthopedic standpoint. GI was broadly in for concerns of dysphagia. Her modified barium swallow showed mild tertiary contractions with relatively rapid passage of most of the swallow of barium from the esophagus into the stomach. There was some concern for oral Andrea and she was started on Diflucan and then if her symptoms did not improve they would like to set her up for an outpatient EGD. Patient is appropriate for discharge to rehab today. Vital signs, temperature is 97.4 degrees, heart rate 95, respirations 20, blood pressure 135/63, O2 is 98% on room air. DISCHARGE DIET: Diabetic with Glucerna shakes each meal. DISCHARGE MEDICATIONS: 1. Aspirin 81 mg p.o. daily. 2. Colace 200 mg p.o. at bedtime. 3. Ezetimibe 1 tab p.o. daily. 4. Diflucan 100 mg p.o. daily. 5. Glyburide 4 mg p.o. b.i.d. 6. Levemir 15 units subcu b.i.d. 7. OxyIR 5 mg p.o. q.3 hours p.r.n. 8. Lovastatin 20 mg p.o. daily. 9. Januvia 100 mg p.o. daily. 10. Flomax 0.4 mg p.o. daily. FOLLOWUP: Patient will be discharged to rehab. If concerns of dysphagia odynophagia persists, she will need to follow up with Dr. Rodriguez as an outpatient. Patient will need to finish her full course of antibiotics. Patient can return to the ED for any worsening of symptoms. DISCHARGE TIME: 30 minutes. Dictated by CATARINA Meadows for Jessica Otto MD cc: Jessica Otto MD [facility]
== END 2016-06-10 13:57 ==
LOC: P.ED 12:14 → SUATTDRO 14:54 → 4N 14:54
PROVIDERS: ATTEND Internal Medicine